=== PATIENT | female | born 1970 | race Caucasian/White ===

== ENCOUNTER → 2016-11-27 | Outpatient (CLI) | payer MEDICAID ==
[~2016-11-27] MED LIST: PROTONIX 40MG T40 MG PO
--- NOTE | 2016-12-04 07:45 | RADIOLOGY REPORT PS360 ---
DIG MAMM-SCREEN BEBO W/CAD CAD Screening COMPARISON: None, this is baseline INDICATION: There is no personal or family history of breast cancer TECHNIQUE: Standard CC and MLO images were obtained. R2 CAD reviewed. FINDINGS: Moderate diffuse fiber glandular densities are seen in both breasts there is no suspicious lesion and there are no suspicious microcalcifications. Primarily upper outer quadrants and the findings are bilateral and symmetrical. IMPRESSION: Fibrofatty parenchyma no suspicious lesion seen recommend yearly follow-up BI-RADS CATEGORY: 1_Negative RECOMMENDED FOLLOWUP: 12M 12 MONTH FOLLOW-UP (A letter has been sent to the patient regarding results of the study.)
== END ==
LOC: RAD 16:56
DX: Z12.31 Encounter for screening mammogram for malignant neoplasm of breast (principal)
CPT/HCPCS: G0202

== ENCOUNTER 2017-06-29 17:45 | Emergency (ER) | payer MEDICAID ==
[~2017-06-29] VITALS: Ht 162.6 cm; Wt 53.1 kg
--- OUTSIDE RECORDS SUMMARY | 2017-06-29 17:51 | External Medical Summary Rpt | CCD ---
Demographics Preferred Language Scottish Marital Status Unknown Congregational Affiliation Unknown Race Unknown Ethnic Group Unknown Author Author , NIKKY BYRD Address Unknown Phone Immunization No patient found.
--- OUTSIDE RECORDS SUMMARY | 2017-06-29 17:51 | External Medical Summary Rpt | CCD ---
Author Author , NIKKY BYRD Address Unknown Phone [email or web address] Purpose Continuity of Care Document - through 2016 Problems Code Diagnosis DOS Provider Status J44.9 CHRONIC OBSTRUCTIVE PULMONARY DISEASE, UNSPECIFIED K29.70 GASTRITIS, UNSPECIFIED , WITHOUT BLEEDING
--- OUTSIDE RECORDS SUMMARY | 2017-06-29 17:51 | External Medical Summary Rpt | CCD ---
Author Author , NIKKY BYRD Address Unknown Phone [email or web address] Purpose Continuity of Care Document - through 2016 Problems Code Diagnosis DOS Provider Status J44.9 CHRONIC OBSTRUCTIVE PULMONARY DISEASE, UNSPECIFIED K29.70 GASTRITIS, UNSPECIFIED , WITHOUT BLEEDING
--- OUTSIDE RECORDS SUMMARY | 2017-06-29 17:51 | External Medical Summary Rpt | CCD ---
Demographics Preferred Language Northern Irish Marital Status Unknown [employer] Affiliation Unknown Race Unknown Ethnic Group Unknown Author Author , NIKKY BYRD Address Unknown Phone Immunization No patient found.
--- OUTSIDE RECORDS SUMMARY | 2017-06-29 17:51 | External Medical Summary Rpt ---
Author Author [employer], [employer] Organization [employer] Address Unknown Phone Unavailable
--- OUTSIDE RECORDS SUMMARY | 2017-06-29 17:51 | External Medical Summary Rpt | CCD ---
Author Author [employer] Organization [employer] Address Unknown Phone Unavailable Purpose Continuity of Care Document - through 2016
[2017-06-29] MEDS ORDERED: HYDROXYZINE 25M25 MG PO (17:53)
[2017-06-29 18:10] VITALS: BP 117/84
--- NOTE | 2017-06-29 18:10 | Urgent Treatment Center Report ---
History of Present Issue Date/Time Seen by Provider 06/29/17 5046 Visit Reason Pt arrived:Walked Presenting Problem:RASH ON ABD AND BACK SINCE [facility]. SEEN BY PCP AND GIVEN MEDS TO TAKE, PREDNISONE AND HYDROXYZINE. Location if Accident: Onset of symptoms date/time:/ or onset unknown for:MEDICAL HX UNKNOWN Have you (or family members/close friends) recently traveled outside the [place]? N If Yes, where/when: Have you had exposure to infectious disease within the past month? TB? Other? Specify: c/o persistant rash to trunk and now spreading to xu FAs. First noticed at [facility]. Not bothersome, no symptoms "just saw it was there". Saw Cielo Ba NP at [facility] [place]'s office around one week ago. Type of rash unknown. told possibly contact dermatitis. Rx prednisone and hydroxyzine. No symptoms still while taking it but since stopping medication, rash now feels like it is burning and spreading. Noticed 2-3 new red patches xu FAs since stopping medication. No fever, malaise. Can't think of anything new that might have caused this. No recent illnesses. No one at home w/ rash. Source patient Exam Limitations no limitations ALLERGIES Coded Allergies: Penicillins (08/02/16) Home Medications Reported Medications Hydroxyzine Pamoate (Hydroxyzine) 25 MG PO Q6HP PRN RASH History Medical History General CAD? No Angina: No DC: No Hypertension? No Hyperlipidemia? No CHF? No DVT? No PE? No COPD? No Asthma? No Anemia? No GERD? No Gastric ulcers? No GI Bleed? No Hernia? No Thyroid Problems? No Hypothyroidism? No CVA? No Seizures? No Diabetes? No Renal Insuffiency? No UTI? No Stones? No BPH? No GB Disease: No Nephritic Syndrome? No Asplenia? No Hepatitis? No Sickle Cell Disease? No Arthritis? No Migraines? No Cataracts? No Glaucoma? No MRSA? No HIV? No TB? No Anxiety? No Depression? No Cancer? No Immunization HX DT/Tetanus 5-10 Years Ago Surgical Hx Previous Surgery?Y PNUEMOTHORAX X2 Social History Smoking Hx Smoker: Current Every Day Smoker Tobacco: Yes Type Cigarettes Alcohol Alcohol: No Review of Systems All Other Systems Reviewed and Negative Constitutional see HPI, denies chills, denies weakness Eyes denies inflammation, denies vision change ENT denies: throat swelling. Respiratory denies shortness of breath Cardiovascular denies palpitations Gastrointestinal denies nausea, denies vomiting Musculoskeletal denies joint pain, denies joint swelling, denies muscle stiffness Skin see HPI Psychiatric/Neurological denies headache, denies numbness, denies tingling, denies weakness, denies other (dizziness) Physical Exam Vital Signs Vital Signs Date Time Temp Pulse Resp B/P Pulse O2 O2 Flow FiO2 Ox Delivery Rate 06/29 1810 99.8 116 18 117/84 98 06/29 1751 99.8 116 18 117/84 98 General Appearance normal appearance, no apparent distress Ear, Nose, Throat normal ENT inspection Respiratory Status No: respiratory distress, productive cough, non productive cough. Lung Sounds anterior: lungs clear. posterior: lungs clear. bilateral: lungs clear. Cardiovascular regular rate/rhythm, no peripheral edema Gastrointestinal normal bowel sounds, non tender, soft Extremities normal range of motion (x4 ) Strength 5 Upper Ext (L), 5 Upper Ext (R), 5 Lower Ext (L), 5 Lower Ext (R) Neurologic alert, oriented x 3 Skin maculopapular rash covering chest, abdomen, back and starting xu anterior FAs ; tight clusters; no herald patching; Lymphatic no adenopathy Medical Decision Making LABS/Meds/Orders Pt receiving controlled substance in ED? No Departure Departure Time of Disposition 180 Disposition DC Home or Self Care(routine) Clinical Impression Primary Impression: Rash and nonspecific skin eruption Condition STABLE Referrals NO REFERRAL [facility] [place] [phone] Call this office first thing in the morning. See if they accept your insurance. If so, tell them you were referred by the [facility] at [facility] for a rash present since , worse with steroids and now painful. Patient Instructions DI for Rash Additional Instructions Follow up very important If you call tomorrow and can not get an appointment, be sure to call me so we can come up with a different plan of care of follow up with primary care so they know that the rash is not better and worsening. Discharge Counseling Counseled pt/family regarding diagnosis, home care, follow up needs at [phone]
--- NOTE | 2017-06-29 18:10 | Urgent Treatment Center Report ---
History of Present Issue Date/Time Seen by Provider 06/29/17 0049 Visit Reason Pt arrived:Walked Presenting Problem:RASH ON ABD AND BACK SINCE [facility]. SEEN BY PCP AND GIVEN MEDS TO TAKE, PREDNISONE AND HYDROXYZINE. Location if Accident: Onset of symptoms date/time:/ or onset unknown for:MEDICAL HX UNKNOWN Have you (or family members/close friends) recently traveled outside the [place]? N If Yes, where/when: Have you had exposure to infectious disease within the past month? TB? Other? Specify: c/o persistant rash to trunk and now spreading to xu FAs. First noticed at [facility]. Not bothersome, no symptoms "just saw it was there". Saw Cielo Ba NP at [facility]'s office around one week ago. Type of rash unknown. told possibly contact dermatitis. Rx prednisone and hydroxyzine. No symptoms still while taking it but since stopping medication, rash now feels like it is burning and spreading. Noticed 2-3 new red patches xu FAs since stopping medication. No fever, malaise. Can't think of anything new that might have caused this. No recent illnesses. No one at home w/ rash. Source patient Exam Limitations no limitations ALLERGIES Coded Allergies: Penicillins (08/02/16) Home Medications Reported Medications Hydroxyzine Pamoate (Hydroxyzine) 25 MG PO Q6HP PRN RASH History Medical History General CAD? No Angina: No [place]: No Hypertension? No Hyperlipidemia? No CHF? No DVT? No PE? No COPD? No Asthma? No Anemia? No GERD? No Gastric ulcers? No GI Bleed? No Hernia? No Thyroid Problems? No Hypothyroidism? No CVA? No Seizures? No Diabetes? No Renal Insuffiency? No UTI? No Stones? No BPH? No GB Disease: No Nephritic Syndrome? No Asplenia? No Hepatitis? No Sickle Cell Disease? No Arthritis? No Migraines? No Cataracts? No Glaucoma? No MRSA? No HIV? No TB? No Anxiety? No Depression? No Cancer? No Immunization HX DT/Tetanus 5-10 Years Ago Surgical Hx Previous Surgery?Y PNUEMOTHORAX X2 Social History Smoking Hx Smoker: Current Every Day Smoker Tobacco: Yes Type Cigarettes Alcohol Alcohol: No Review of Systems All Other Systems Reviewed and Negative Constitutional see HPI, denies chills, denies weakness Eyes denies inflammation, denies vision change ENT denies: throat swelling. Respiratory denies shortness of breath Cardiovascular denies palpitations Gastrointestinal denies nausea, denies vomiting Musculoskeletal denies joint pain, denies joint swelling, denies muscle stiffness Skin see HPI Psychiatric/Neurological denies headache, denies numbness, denies tingling, denies weakness, denies other (dizziness) Physical Exam Vital Signs Vital Signs Date Time Temp Pulse Resp B/P Pulse O2 O2 Flow FiO2 Ox Delivery Rate 06/29 1810 99.8 116 18 117/84 98 06/29 1751 99.8 116 18 117/84 98 General Appearance normal appearance, no apparent distress Ear, Nose, Throat normal ENT inspection Respiratory Status No: respiratory distress, productive cough, non productive cough. Lung Sounds anterior: lungs clear. posterior: lungs clear. bilateral: lungs clear. Cardiovascular regular rate/rhythm, no peripheral edema Gastrointestinal normal bowel sounds, non tender, soft Extremities normal range of motion (x4 ) Strength 5 Upper Ext (L), 5 Upper Ext (R), 5 Lower Ext (L), 5 Lower Ext (R) Neurologic alert, oriented x 3 Skin maculopapular rash covering chest, abdomen, back and starting xu anterior FAs ; tight clusters; no herald patching; Lymphatic no adenopathy Medical Decision Making LABS/Meds/Orders Pt receiving controlled substance in ED? No Departure Departure Time of Disposition 180 Disposition [place] Home or Self Care(routine) Clinical Impression Primary Impression: Rash and nonspecific skin eruption Condition STABLE Referrals NO REFERRAL [facility] [place] [phone] Call this office first thing in the morning. See if they accept your insurance. If so, tell them you were referred by the [facility] at [facility] for a rash present since , worse with steroids and now painful. Patient Instructions DI for Rash Additional Instructions Follow up very important If you call tomorrow and can not get an appointment, be sure to call me so we can come up with a different plan of care of follow up with primary care so they know that the rash is not better and worsening. Discharge Counseling Counseled pt/family regarding diagnosis, home care, follow up needs at [phone]
== END 2017-06-29 18:11 | disposition home or self-care (01) ==
LOC: UTC 17:45
DX: R21 Rash and other nonspecific skin eruption (principal); Z88.0 Allergy status to penicillin; F17.210 Nicotine dependence, cigarettes, uncomplicated